=== PATIENT | male | born 1970 | race Caucasian/White ===

== ENCOUNTER 2018-01-04 04:34 | Emergency (ER) | payer OTHER ==
[2018-01-04 05:17] LABS: APPEARANCE,URINE CLEAR; BILIRUBIN,URINE NEGATIVE (NEGATIVE); COLOR,URINE AMBER; GLUCOSE, URINE NEGATIVE (NEGATIVE); KETONES,URINE NEGATIVE (NEGATIVE); LEUKOCYTE ESTERASE,URINE NEGATIVE (NEGATIVE); NITRITE,URINE POSITIVE (NEGATIVE); PROTEIN,URINE NEGATIVE (NEGATIVE); URINE SPECIFIC GRAVITY 1.015
[2018-01-04] MEDS ORDERED: DOXYCYCLINE HYCLATE 100 MG TABLET PO ONE (06:08)
[2018-01-04] MEDS ORDERED: LIDOCAINE 1% INJ-PF (10 MG/ML) 30 ML SDV INJ ONE (06:08)
[2018-01-04] MEDS ORDERED: CEFTRIAXONE INJ 250 MG VIAL IM ONE (06:08)
--- NOTE | 2018-01-04 06:12 | ER Document Report ---
HPI - HPI Patient complains to provider of: UTI Onset: Other - Days Onset/Duration: Persistent Quality of pain: Burning Pain Level: 4 Context: Presents complaining of UTI for the past 5 days. Patient went to an urgent care 3 days ago and was placed on Cipro. Patient denies any improvement in his dysuria symptoms. Patient complains of dysuria and urgency. Patient denies any fever, abdominal pain, back pain, nausea or vomiting. Patient denies any testicular tenderness. Patient only complains of pain at urethral site. Patient denies any concerns about sexually transmitted infection. Patient denies any drainage or discharge from the penis. Associated Symptoms: denies: Fever Exacerbated by: Denies Relieved by: Denies Similar symptoms previously: Yes - Last year had a UTI Recently seen / treated by doctor: Yes - ROS ROS below otherwise negative: Yes - CONSTITUTIONAL Constitutional: DENIES: Fever, Chills - EENT EENT: DENIES: Sore Throat - GASTROINTESTINAL Gastrointestinal: DENIES: Abdominal Pain, Nausea, Patient vomiting - URINARY Urinary: REPORTS: Dysuria, Urgency, Frequency - MUSCULOSKELETAL Musculoskeletal: DENIES: Back Pain - DERM Skin Color: Normal Skin Problems: None Past Medical History - General Information source: Patient - Social History Smoking Status: Never Smoker Chew tobacco use (# tins/day): Yes Frequency of alcohol use: None Drug Abuse: None Lives with: Spouse/Significant other Family History: Reviewed & Not Pertinent Patient has suicidal ideation: No Patient has homicidal ideation: No - Past Medical History Cardiac Medical History: Reports: Hx Hypercholesterolemia, Hx Hypertension Neurological Medical History: Reports: Hx Migraine Renal/ Medical History: Denies: Hx Peritoneal Dialysis Past Surgical History: Reports: Hx Inguinal Hernia, Hx Myringotomy, Hx Orthopedic Surgery, Other - Septoplasty Vertical Provider Document - CONSTITUTIONAL Agree With Documented VS: Yes Exam Limitations: No Limitations General Appearance: WD/WN, No Apparent Distress - INFECTION CONTROL TRAVEL OUTSIDE OF THE [place] IN LAST 30 DAYS: No - HEENT HEENT: Atraumatic, Normocephalic - NECK Neck: Normal Inspection - RESPIRATORY Respiratory: Breath Sounds Normal, No Respiratory Distress O2 Sat by Pulse Oximetry: 96 - CARDIOVASCULAR Cardiovascular: Regular Rate, Regular Rhythm - GI/ABDOMEN Gastrointestinal: Abdomen Soft, Abdomen Tender - suprapubic - REPRODUCTIVE Notes: pt deferred - BACK Back: Normal Inspection. negative: CVA Tenderness-Right, CVA Tenderness-Left - MUSCULOSKELETAL/EXTREMETIES Musculoskeletal/Extremeties: ANDREINA URBANO - NEURO Level of Consciousness: Awake, Alert, Appropriate Motor/Sensory: No Motor Deficit - DERM Integumentary: Warm, Dry, No Rash Course - Re-evaluation Re-evalutation: 01/04/18 Patient without any flank tenderness. Patient nontoxic in appearance. No concern for pyelonephritis or obstructive uropathy at this time. Offered patient STD testing and additional examination, patient declined at this time. Urine culture will be performed and will cover patient with antibiotics for urethritis - Vital Signs Vital signs: Temp Pulse Resp BP Pulse Ox 97.9 F 57 L 16 183/97 H 96 01/04/18 04:58 01/04/18 04:58 01/04/18 04:58 01/04/18 04:58 01/04/18 04:58 - Laboratory Laboratory results interpreted by me: 01/04/18 04:55 Urine Nitrite POSITIVE H Urine Urobilinogen 4.0 H Discharge - Discharge Clinical Impression: Urinary symptom or sign, Hx of essential hypertension Condition: Stable Disposition: HOME, SELF-CARE Instructions: Doxycycline ([facility]), Rocephin ([facility]), Urinary Tract Infection ([facility]) Additional Instructions: Return immediately for any new or worsening symptoms Followup with your primary care provider, call tomorrow to make a followup appointment Urine culture is pending, we will call if you need any different treatment Follow-up with a urologist for further evaluation Prescriptions: Doxycycline Hyclate 100 mg PO BID #20 capsule Referrals: [facility] [Provider Group] - Follow up as needed [facility] [Provider Group] - Follow up as needed
[2018-01-04 06:43] VITALS: BP 156/108
== END 2018-01-04 06:44 | disposition home or self-care (01) ==
LOC: ER 04:34
DX: R30.0 Dysuria (principal); R39.15 Urgency of urination; I10 Essential (primary) hypertension; E78.00 Pure hypercholesterolemia, unspecified
CPT/HCPCS: 99283; 96372; 87086; 81001; J3490; J0696

== ENCOUNTER 2018-01-05 06:00 | Emergency (ER) | payer OTHER ==
[2018-01-05] MEDS ORDERED: LIDOCAINE 2% URO-JET 5 ML KIT MM ONE ×2 (07:26→09:13)
--- NOTE | 2018-01-05 07:29 | ER Document Report ---
ED GI/ - General Chief Complaint: Urinary Problem Stated Complaint: URINARY SYMPTONS Time Seen by Provider: 01/05/18 07:03 Notes: The patient is a 47-year-old male who presents with 5 days of dysuria and 1 day of urinary retention. He is only having a small amount of urine dribbling out over the past 5 days. Patient was started on Cipro 5 days ago and then switched to doxycycline yesterday. He is also taking Pyridium. He is from [place] and has not seen a urologist. Patient denies back pain, diarrhea, constipation, fevers, flank pain or headache. TRAVEL OUTSIDE OF THE [place] IN LAST 30 DAYS: No - Related Data Allergies/Adverse Reactions: No Known Allergies Allergy (Verified 01/04/18 05:45) Past Medical History - General Information source: Patient - Social History Smoking Status: Unknown if Ever Smoked Family History: Reviewed & Not Pertinent - Past Medical History Cardiac Medical History: Reports: Hx Hypercholesterolemia, Hx Hypertension Neurological Medical History: Reports: Hx Migraine Renal/ Medical History: Denies: Hx Peritoneal Dialysis Past Surgical History: Reports: Hx Inguinal Hernia, Hx Myringotomy, Hx Orthopedic Surgery, Other - Septoplasty Review of Systems - Review of Systems Notes: REVIEW OF SYSTEMS: CONSTITUTIONAL: -fevers, -chills EENT: -eye pain, -difficulty swallowing, -nasal congestion CARDIOVASCULAR: -chest pain, -syncope. RESPIRATORY: -cough, -SOB GASTROINTESTINAL: +abdominal distention, -nausea, -vomiting, -diarrhea GENITOURINARY: +urinary retention, +dysuria, -hematuria MUSCULOSKELETAL: -back pain, -neck pain SKIN: -rash or skin lesions. HEMATOLOGIC: -easy bruising or bleeding. LYMPHATIC: -swollen, enlarged glands. NEUROLOGICAL: -altered mental status or loss of consciousness, -headache, - neurologic symptoms PSYCHIATRIC: -anxiety, -depression. ALL OTHER SYSTEMS REVIEWED AND NEGATIVE. Physical Exam - Vital signs Vitals: Temp Pulse Resp BP Pulse Ox 98.2 F 69 20 133/97 H 94 01/05/18 06:06 01/05/18 06:06 01/05/18 06:06 01/05/18 06:06 01/05/18 06:06 - Notes Notes: PHYSICAL EXAMINATION: GENERAL: Well-appearing, well-nourished and in no acute distress. HEAD: Atraumatic, normocephalic. EYES: Pupils equal round and reactive to light, extraocular movements intact, sclera anicteric, conjunctiva are normal. ENT: nares patent, oropharynx clear without exudates. Moist mucous membranes. NECK: Normal range of motion, supple without lymphadenopathy LUNGS: Breath sounds clear to auscultation bilaterally and equal. No wheezes rales or rhonchi. HEART: Regular rate and rhythm without murmurs ABDOMEN: Soft, suprapubic tenderness and distention,, normoactive bowel sounds. No guarding, no rebound. No masses appreciated. EXTREMITIES: Normal range of motion, no pitting or edema. No cyanosis. NEUROLOGICAL: Cranial nerves grossly intact. Normal speech, normal gait. Normal sensory and motor exams. PSYCH: Normal mood, normal affect. SKIN: Warm, Dry, normal turgor, no rashes or lesions noted. Course - Re-evaluation Re-evalutation: Patient very anxious about Brito catheter placement. He was given a small dose of Versed to help. Brito difficult to pass and suspect that he has BPH causing his urinary retention. Multiple attempts by PCT, RN and myself without success. 14 Stateless coudette and silicon brito, 16 Stateless coudette and silicon brito and 18 Stateless coudette and silicon brito attempted to pass without success. No WBCs on urinalysis, although it does show positive nitrates. Normal kidney function. 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 Placed call to [facility] at 10:00 to discuss transfer for Urology consultation. Awaiting callback. 01/05/18 10:[address] Ceja ([facility]) and he will see patient at [facility]'s ER. Patient will drive by private vehicle immediately to the ER. - Vital Signs Vital signs: Temp Pulse Resp BP Pulse Ox 98.2 F 69 20 133/97 H 94 01/05/18 06:06 01/05/18 06:06 01/05/18 06:06 01/05/18 06:06 01/05/18 06:06 - Laboratory Result Diagrams: 01/05/18 07:18 Laboratory results interpreted by me: 01/05/18 01/05/18 07:18 07:18 Calcium 10.5 H Urine Nitrite POSITIVE H Urine Urobilinogen 4.0 H Discharge - Discharge Clinical Impression: Urinary retention, Dysuria Condition: Stable Disposition: [facility] Additional Instructions: Go immediately to [facility]'s emergency room ([address] [place] [address]). [address]. Ceja (the Urologist) will meet you in the ER. Urinary Retention Urinary retention is inability to empty the bladder. It can result from a urine infection, or from mechanical problems such as an enlarged prostate gland or swelling of the urethra. Drugs or alcohol can also lead to urine retention. The condition is usually treated by passage of a catheter. If the physician thinks the problem will continue, the catheter may be left in place for a few days. Sometimes drugs are used to stimulate the bladder if the physician feels that inadequate bladder contraction is the cause. If the condition leading to the retention is a chronic one, such as an enlarged prostate, you will be referred to a specialist for further care. Call the physician or return if you develop fever, flank or back pain, pain on urination, or recurrent difficulty passing the urine. Forms: Elevated Blood Pressure Referrals: [facility] [Provider Group] - Follow up as needed
[2018-01-05 07:47] LABS: APPEARANCE,URINE CLEAR; BILIRUBIN,URINE NEGATIVE (NEGATIVE); GLUCOSE, URINE NEGATIVE (NEGATIVE); KETONES,URINE NEGATIVE (NEGATIVE); LEUKOCYTE ESTERASE,URINE NEGATIVE (NEGATIVE); NITRITE,URINE POSITIVE (NEGATIVE); PROTEIN,URINE NEGATIVE (NEGATIVE); URINE SPECIFIC GRAVITY 1.006
[2018-01-05 07:49] LABS: COLOR,URINE ORANGE
[2018-01-05 07:57] LABS: ANION GAP 15 (5-19); BLOOD UREA NITROGEN 13 mg/dL (7-20); CALCIUM 10.5 mg/dL (8.4-10.2); CARBON DIOXIDE 27 mmol/L (22-30); CHLORIDE 101 mmol/L (98-107); GLUCOSE 104 mg/dL (75-110); POTASSIUM 4.3 mmol/L (3.6-5.0); SODIUM 142.5 mmol/L (137-145)
[2018-01-05] MEDS ORDERED: MIDAZOLAM 2 MG/2 ML INJ IM ONE ×2 (08:19→09:13)
[2018-01-05 11:16] VITALS: BP 158/101
== END 2018-01-05 11:21 | disposition short-term general hospital (02) ==
LOC: ER 06:00
DX: R33.9 Retention of urine, unspecified (principal); R30.0 Dysuria; I10 Essential (primary) hypertension; F41.9 Anxiety disorder, unspecified
CPT/HCPCS: 99283; 96372; 51702; 36415; 80048; 81001; J2250; J3490